=== PATIENT | male | born 1955 | race Hispanic/Latino ===

== ENCOUNTER → 2018-10-13 | Outpatient (CLI) | payer OTHER | END | disposition home or self-care (01) | LOC: SHCH 12:36 | PROVIDERS: ATTEND Internal Medicine Cardiovascular Disease | DX: I35.0 Nonrheumatic aortic (valve) stenosis (principal); I51.7 Cardiomegaly; I70.0 Atherosclerosis of aorta | CPT/HCPCS: 93306 ==

== ENCOUNTER → 2020-03-13 | Outpatient (CLI) | payer OTHER | END | disposition home or self-care (01) | LOC: SHCH 08:42 | PROVIDERS: ATTEND Internal Medicine Cardiovascular Disease | DX: I35.0 Nonrheumatic aortic (valve) stenosis (principal); I51.7 Cardiomegaly | CPT/HCPCS: 93306; 93356 ==

== ENCOUNTER 2021-06-22 01:53 | Emergency (ER) | payer MEDICARE, OTHER ==
[~2021-06-22] VITALS: Ht 162.6 cm; Wt 93.4 kg
[~2021-06-22 01:53] MED LIST: TAMS-1 PO
[2021-06-22 01:54] VITALS: BP 162/93
[2021-06-22 03:19] VITALS: BP 131/78
[2021-06-22 03:58] LABS: APPEARANCE,URINE Clear (CLEAR); BILIRUBIN,URINE Negative (NEGATIVE); COLOR,URINE Yellow (YELLOW); GLUCOSE, URINE (UA) Negative (NEGATIVE); KETONES,URINE Negative (NEGATIVE); LEUKOCYTE ESTERASE ,URINE Trace (NEGATIVE); NITRATE,URINE Negative (NEGATIVE); OCCULT BLOOD,URINE Large (NEGATIVE); PH,URINE 5.5 (5.0-8.0); PROTEIN,URINE POS 1+ mg/dL (NEGATIVE); UROBILINOGEN,URINE 0.2 mg/dL (0.2-1.0)
[2021-06-22 03:59] VITALS: BP 122/63
[2021-06-22 04:10] LABS: BACTERIA,URINE Few /HPF (None Seen); WBC,URINE None Seen /HPF (0-1)
[2021-06-22 05:11] VITALS: BP 134/65
== END 2021-06-22 05:32 | disposition home or self-care (01) ==
LOC: EDH 01:53
DX: R33.9 Retention of urine, unspecified (principal); Z79.899 Other long term (current) drug therapy
CPT/HCPCS: 51702; 81001

== ENCOUNTER 2021-08-01 05:35 | Day surgery (SDC) | payer MEDICARE ==
[2021-07-30 16:38] LABS: BASOPHILS % (AUTO) 0.8 % (0.0-5.0); HEMATOCRIT 36.9 % (42-54); LYMPHOCYTES % (AUTO) 22.2 % (21.0-51.0); MEAN CORPUSCULAR HEMOGLOBIN 28.2 pg (27.0-33.0); MEAN CORPUSCULAR VOLUME 88.1 fL (79-99); MONOCYTES % (AUTO) 8.9 % (3.0-13.0); NEUTROPHILS % (AUTO) 61.6 % (40.0-77.0); PLATELET COUNT (AUTO) 207 K/uL (130-400); RED BLOOD CELL COUNT(AUTO) 4.19 MIL/uL (4.50-6.20); WHITE BLOOD COUNT (AUTO) 6.7 K/uL (4.8-10.8)
[2021-07-30 16:47] LABS: APPEARANCE,URINE Clear (CLEAR); BILIRUBIN,URINE Negative (NEGATIVE); COLOR,URINE Yellow (YELLOW); GLUCOSE, URINE (UA) Negative (NEGATIVE); KETONES,URINE Negative (NEGATIVE); LEUKOCYTE ESTERASE ,URINE Large (NEGATIVE); NITRATE,URINE Negative (NEGATIVE); OCCULT BLOOD,URINE Moderate (NEGATIVE); PH,URINE 5.5 (5.0-8.0); PROTEIN,URINE Negative (NEGATIVE); UROBILINOGEN,URINE 0.2 mg/dL (0.2-1.0)
[2021-07-30 16:48] LABS: POTASSIUM 3.9 mmol/L (3.5-5.1)
[2021-07-30 16:50] LABS: INR 0.99 (0.85-1.15); PROTHROMBIN TIME 10.8 SEC (9.6-11.6)
[2021-07-30 16:51] LABS: PARTIAL THROMBOPLASTIN TIME 28.5 SEC (26.3-35.5)
[2021-07-30 16:59] LABS: BACTERIA,URINE Few /HPF (None Seen); MUCUS,URINE Few LPF (None Seen); SQUAMOUS EPITHELIAL CELL,UR Few /HPF (0-2)
[2021-08-01] VITALS (8 sets, daily range): BP systolic 123–158; BP diastolic 61–77
[~2021-08-01] VITALS: Ht 162.6 cm; Wt 93.8 kg
[2021-08-01] MEDS ORDERED: 0.9%NACL 1000ML 1,000 ML IV ONE (06:16)
[2021-08-01] MEDS ORDERED: IOHEXOL-350 50ML VIAL IV ONE (07:01)
[2021-08-01] MEDS ORDERED: IOHEXOL 350 MG/ML 100ML INFUS..BTL IV ONE (07:01)
[2021-08-01] MEDS ORDERED: LIDOCAINE HCL 400MG/20ML VIAL ONE (07:01)
[2021-08-01] MEDS ORDERED: NITROGLYCERIN 2 MG VIAL IV ONE (07:02)
[2021-08-01] MEDS ORDERED: 0.9%NACL 1000ML 1,000 ML IV SCH (08:10)
== END 2021-08-01 11:25 | disposition home or self-care (01) ==
LOC: DAH 05:35
PROVIDERS: ATTEND Internal Medicine Cardiovascular Disease
DX: I35.0 Nonrheumatic aortic (valve) stenosis (principal); I20.9 Angina pectoris, unspecified; I25.2 Old myocardial infarction; Z79.01 Long term (current) use of anticoagulants; Z79.899 Other long term (current) drug therapy; Z82.49 Family history of ischemic heart disease and other diseases of the circulatory system; Z98.890 Other specified postprocedural states
CPT/HCPCS: 36415; 71045; 80048; 81001; 85025; 85610; 85730; 87077; 87088; 87186; 93005; 93454; A4215; A4216; A4221; A4222; A4223 ×3; A4606; A4663; C1760; C1894; J1644; J3490; J7030; Q9965; Q9967

== ENCOUNTER 2021-08-30 10:19 | Inpatient (IN) | payer MEDICARE ==
[~2021-08-30] VITALS: Ht 162.6 cm; Wt 92.1 kg
[2021-08-30] VITALS (9 sets, daily range): BP systolic 99–128; BP diastolic 62–75
[2021-08-30 10:48] LABS: BASOPHILS % (AUTO) 0.7 % (0.0-5.0); EOSINOPHILS % (AUTO) 5.9 % (0.0-8.0); HEMATOCRIT 38.2 % (42-54); LYMPHOCYTES % (AUTO) 22.5 % (21.0-51.0); MEAN CORPUSCULAR HEMOGLOBIN 27.8 pg (27.0-33.0); MEAN CORPUSCULAR HGB CONC 31.9 g/dL (32.0-36.0); MONOCYTES % (AUTO) 7.8 % (3.0-13.0); NEUTROPHILS % (AUTO) 62.7 % (40.0-77.0); PLATELET COUNT (AUTO) 259 K/uL (130-400); RED BLOOD CELL COUNT(AUTO) 4.39 MIL/uL (4.50-6.20); RED CELL DISTRIBUTION WIDTH 13.7 % (11.0-15.5); WHITE BLOOD COUNT (AUTO) 6.9 K/uL (4.8-10.8)
[2021-08-30 11:08] LABS: B-TYPE NATRIURETIC PEPTIDE 285 pg/mL (0-100); PROTHROMBIN TIME 10.9 SEC (9.6-11.6)
[2021-08-30 11:10] LABS: PARTIAL THROMBOPLASTIN TIME 27.3 SEC (26.3-35.5)
[2021-08-30 11:14] LABS: CREATININE 0.9 mg/dL (0.5-1.5); POTASSIUM 3.9 mmol/L (3.5-5.1)
[2021-08-30 11:19] LABS: ALBUMIN 3.7 g/dL (3.5-5.0); BILIRUBIN,TOTAL 0.5 mg/dL (0.2-1.0); TOTAL PROTEIN, SERUM 7.7 g/dL (6.0-8.3)
[2021-08-30] MEDS ORDERED: DOPAMINE 800MG/D5 250ML 250 ML IV ONE (11:22)
[2021-08-30] MEDS ORDERED: CEFAZOLIN SODIUM IV PRN (12:00)
[2021-08-30] MEDS ORDERED: DIPHENHYDRAMINE HCL 25 MG CAPSULE PO PRN (12:00)
[2021-08-30] MEDS ORDERED: [UNRECOGNIZED DRUG - OTHER] IV PRN (12:00)
[2021-08-30] MEDS ORDERED: BUPIVACAINE/PF 0.25% 30ML VIAL IJ ONE (12:09)
[2021-08-30] MEDS ORDERED: IODIXANOL 320 MG/ML 100 ML VIAL ONE (12:09)
[2021-08-30] MEDS ORDERED: LIDOCAINE HCL 1% MDV 50ML VIAL ONE (12:09)
[2021-08-30] MEDS ORDERED: CEFAZOLIN SODIUM 1 GM VIAL ONE (12:11)
[2021-08-30] MEDS ORDERED: ONDANSETRON 4MG TABLET PO PRN (12:30)
[2021-08-30] MEDS ORDERED: ACETAMINOPHEN 325 MG TAB PO PRN ×3 (12:30→15:00)
[2021-08-30] MEDS: DOPAMINE 800MG/D5 250ML 250 ML IV SCH (12:43)
[2021-08-30] MEDS ORDERED: FENTANYL CITRATE PF 50 MCG/1 ML 2ML VIAL ONE (13:05)
[2021-08-30] MEDS ORDERED: MIDAZOLAM HCL 1 MG/ML 2ML VIAL ONE (13:05)
[2021-08-30] MEDS ORDERED: OCTYL 2-CYANOACRYLATE 1 EACH TP ONE ×2 (14:45→14:46)
[2021-08-30] MEDS ORDERED: TEMAZEPAM 30 MG CAP PO PRN (15:00)
[2021-08-30] MEDS ORDERED: ONDANSETRON 4MG INJ IV PRN (15:00)
[2021-08-30] MEDS ORDERED: AEC81 PO (18:12)
[2021-08-30] MEDS ORDERED: CLOP75TA32 PO (18:12)
[2021-08-30] MEDS: CEFAZOLIN SODIUM 1 GM VIAL IVP SCH (21:43)
[2021-08-30] MEDS: TAMSULOSIN HCL 0.4 MG CAP.ER.24H PO SCH (21:44)
[2021-08-31] VITALS: BP 138/75
[2021-08-31 04:00] VITALS: BP 128/78
[2021-08-31 04:43] LABS: BASOPHILS % (AUTO) 0.5 % (0.0-5.0); EOSINOPHILS % (AUTO) 3.6 % (0.0-8.0); HEMATOCRIT 33.2 % (42-54); LYMPHOCYTES % (AUTO) 19.9 % (21.0-51.0); MEAN CORPUSCULAR HEMOGLOBIN 28.1 pg (27.0-33.0); MEAN CORPUSCULAR HGB CONC 32.8 g/dL (32.0-36.0); MEAN CORPUSCULAR VOLUME 85.6 fL (79-99); NEUTROPHILS % (AUTO) 64.5 % (40.0-77.0); PLATELET COUNT (AUTO) 198 K/uL (130-400); RED BLOOD CELL COUNT(AUTO) 3.88 MIL/uL (4.50-6.20); RED CELL DISTRIBUTION WIDTH 13.6 % (11.0-15.5); WHITE BLOOD COUNT (AUTO) 6.1 K/uL (4.8-10.8)
[2021-08-31 04:59] LABS: ALBUMIN 3.1 g/dL (3.5-5.0); BILIRUBIN,TOTAL 0.5 mg/dL (0.2-1.0); CREATININE 0.8 mg/dL (0.5-1.5); MAGNESIUM 1.8 mg/dL (1.80-2.40); POTASSIUM 4.1 mmol/L (3.5-5.1); TOTAL PROTEIN, SERUM 6.6 g/dL (6.0-8.3)
[2021-08-31] MEDS: CEFAZOLIN SODIUM 1 GM VIAL IVP SCH ×3 (06:42→20:51)
[2021-08-31 08:52] VITALS: BP 133/77
[2021-08-31] MEDS: DOPAMINE 800MG/D5 250ML 250 ML IV SCH (08:55)
[2021-08-31] MEDS: TAMSULOSIN HCL 0.4 MG CAP.ER.24H PO SCH ×2 (09:01→20:51)
[2021-08-31] MEDS: CLOPIDOGREL 75MG TAB PO SCH (09:01)
[2021-08-31] MEDS: ASPIRIN 81 MG EC TAB PO SCH (09:01)
[2021-08-31 11:32] VITALS: BP 144/83
[2021-08-31 15:47] VITALS: BP 128/87
[2021-08-31] MEDS ORDERED: CLIN-141 PO (19:17)
[2021-08-31 20:00] VITALS: BP 126/85
[2021-08-31] MEDS: CLINDAMYCIN 150 MG CAP PO SCH (20:51)
[2021-09-01] VITALS: BP 112/60
[2021-09-01 04:00] VITALS: BP 121/73
[2021-09-01] MEDS: CLINDAMYCIN 150 MG CAP PO SCH ×2 (04:39→12:55)
[2021-09-01] MEDS: CEFAZOLIN SODIUM 1 GM VIAL IVP SCH ×2 (04:40→12:55)
[2021-09-01 08:18] VITALS: BP 132/79
[2021-09-01] MEDS: ASPIRIN 81 MG EC TAB PO SCH (09:11)
[2021-09-01] MEDS: TAMSULOSIN HCL 0.4 MG CAP.ER.24H PO SCH (09:11)
[2021-09-01] MEDS: CLOPIDOGREL 75MG TAB PO SCH (09:11)
[2021-09-01 11:41] VITALS: BP 152/100
[2021-09-01 16:26] VITALS: BP 144/88
== END 2021-09-01 18:45 | disposition home or self-care (01) | DRG 242 ==
LOC: EDH 10:19 → EDHIP 11:29 → UNDOADMIN 11:29 → EDHIP 11:30 → 4DH 15:30
PROVIDERS: ADMIT Internal Medicine Infectious Disease; ATTEND Internal Medicine Infectious Disease
PROC: 0JH606Z Insertion of Pacemaker, Dual Chamber into Chest Subcutaneous Tissue and Fascia, Open Approach (ICD-10-PCS; principal; 2021-08-30)
PROC: 02HK3JZ Insertion of Pacemaker Lead into Right Ventricle, Percutaneous Approach (ICD-10-PCS; 2021-08-30)
PROC: 02H63JZ Insertion of Pacemaker Lead into Right Atrium, Percutaneous Approach (ICD-10-PCS; 2021-08-30)
PROC: 4B02XSZ Measurement of Cardiac Pacemaker, External Approach (ICD-10-PCS; 2021-08-31)
DX: I44.2 Atrioventricular block, complete (principal); I50.33 Acute on chronic diastolic (congestive) heart failure; E78.00 Pure hypercholesterolemia, unspecified; E66.9 Obesity, unspecified; R33.8 Other retention of urine; N40.1 Benign prostatic hyperplasia with lower urinary tract symptoms; E78.5 Hyperlipidemia, unspecified; I25.10 Atherosclerotic heart disease of native coronary artery without angina pectoris; Z68.34 Body mass index [BMI] 34.0-34.9, adult; Z95.2 Presence of prosthetic heart valve; Z85.46 Personal history of malignant neoplasm of prostate; I11.0 Hypertensive heart disease with heart failure
CPT/HCPCS: 33208; 36415; 71045; 71046; 80053; 82550; 83735; 83880; 84443; 84484; 85025; 85610; 85730; 93005; 99156; 99157; 99291; C1785; G0378; J0690; J1265; J2250; J3010; J3490; Q9967

== ENCOUNTER 2021-09-22 10:10 | Inpatient (IN) | payer MEDICARE ==
[~2021-09-22] VITALS: Ht 162.6 cm; Wt 93.4 kg
[~2021-09-22 10:10] MED LIST changes: +AEC81 PO; +CLOP75TA32 PO
[2021-09-22 11:10] LABS: BASOPHILS % (AUTO) 0.5 % (0.0-5.0); EOSINOPHILS % (AUTO) 0.9 % (0.0-8.0); MEAN CORPUSCULAR HEMOGLOBIN 26.8 pg (27.0-33.0); MEAN CORPUSCULAR HGB CONC 31.4 g/dL (32.0-36.0); MEAN CORPUSCULAR VOLUME 85.3 fL (79-99); MONOCYTES % (AUTO) 4.1 % (3.0-13.0); PLATELET COUNT (AUTO) 213 K/uL (130-400); RED BLOOD CELL COUNT(AUTO) 4.22 MIL/uL (4.50-6.20); RED CELL DISTRIBUTION WIDTH 13.7 % (11.0-15.5); WHITE BLOOD COUNT (AUTO) 6.7 K/uL (4.8-10.8)
[2021-09-22 11:16] LABS: APPEARANCE,URINE CLOUDY (CLEAR); BILIRUBIN,URINE SMALL (NEGATIVE); GLUCOSE, URINE (UA) 100 mg/dL (NEGATIVE); KETONES,URINE 5 mg/dL (NEGATIVE); LEUKOCYTE ESTERASE ,URINE NEGATIVE (NEGATIVE); NITRATE,URINE POSITIVE (NEGATIVE); OCCULT BLOOD,URINE LARGE (NEGATIVE); PROTEIN,URINE >=300 mg/dL (NEGATIVE); UROBILINOGEN,URINE 0.2 mg/dL (0.2-1.0)
[2021-09-22 11:19] LABS: COLOR,URINE RED (YELLOW)
[2021-09-22 11:29] LABS: RBC,URINE TNTC /HPF (0-1)
[2021-09-22 11:30] LABS: BACTERIA,URINE Few /HPF (None Seen); SQUAMOUS EPITHELIAL CELL,UR Rare /HPF (0-2)
[2021-09-22 11:36] LABS: POTASSIUM 4.3 mmol/L (3.5-5.1)
[2021-09-22 11:37] LABS: INR 1.01 (0.85-1.15)
[2021-09-22 11:38] LABS: PARTIAL THROMBOPLASTIN TIME 24.6 SEC (26.3-35.5)
[2021-09-22 11:42] LABS: ALBUMIN 3.5 g/dL (3.5-5.0); BILIRUBIN,TOTAL 0.2 mg/dL (0.2-1.0); TOTAL PROTEIN, SERUM 7.3 g/dL (6.0-8.3)
[2021-09-22] MEDS ORDERED: IOHEXOL-350 75 ML VIAL IV ONE (12:59)
[2021-09-22] MEDS ORDERED: LIDOCAINE HCL 2% JELLY 5 ML ONE (15:19)
[2021-09-22] MEDS ORDERED: ONDANSETRON 4MG INJ IVP PRN (16:30)
[2021-09-22 17:10] VITALS: BP 130/69
[2021-09-22 18:38] LABS: HEMATOCRIT 31.8 % (42-54); MEAN CORPUSCULAR HEMOGLOBIN 26.7 pg (27.0-33.0); MEAN CORPUSCULAR HGB CONC 31.8 g/dL (32.0-36.0); MEAN CORPUSCULAR VOLUME 84.1 fL (79-99); PLATELET COUNT (AUTO) 207 K/uL (130-400); RED BLOOD CELL COUNT(AUTO) 3.78 MIL/uL (4.50-6.20); RED CELL DISTRIBUTION WIDTH 13.7 % (11.0-15.5); WHITE BLOOD COUNT (AUTO) 5.5 K/uL (4.8-10.8)
[2021-09-22 19:50] LABS: BAND NEUTROPHILS % (MANUAL) 1 % (0-2); EOSINOPHILS % (MANUAL) 8 % (1-6); LYMPHOCYTES % (MANUAL) 13 % (22-44); MAN.DIFF COMMENT-IMPRESSION MANUAL DIFFERENTIAL; MONOCYTES % (MANUAL) 5 % (2-9); REACTIVE LYMPHOCYTES 7 % (0-0); SEGMENTED NEUTROPHILS % 66 % (40-70)
[2021-09-22 20:00] VITALS: BP 119/70
[2021-09-23] VITALS (27 sets, daily range): BP systolic 117–155; BP diastolic 70–85
[2021-09-23 05:49] LABS: BASOPHILS % (AUTO) 0.5 % (0.0-5.0); EOSINOPHILS % (AUTO) 6.6 % (0.0-8.0); HEMATOCRIT 30.4 % (42-54); LYMPHOCYTES % (AUTO) 25.8 % (21.0-51.0); MEAN CORPUSCULAR HGB CONC 31.9 g/dL (32.0-36.0); MEAN CORPUSCULAR VOLUME 84.7 fL (79-99); MONOCYTES % (AUTO) 10.4 % (3.0-13.0); NEUTROPHILS % (AUTO) 56.4 % (40.0-77.0); PLATELET COUNT (AUTO) 187 K/uL (130-400); RED BLOOD CELL COUNT(AUTO) 3.59 MIL/uL (4.50-6.20); RED CELL DISTRIBUTION WIDTH 13.8 % (11.0-15.5); WHITE BLOOD COUNT (AUTO) 5.9 K/uL (4.8-10.8)
[2021-09-23 06:05] LABS: CREATININE 0.9 mg/dL (0.5-1.5); MAGNESIUM 1.8 mg/dL (1.80-2.40); POTASSIUM 4.2 mmol/L (3.5-5.1)
[2021-09-23] MEDS: ZOSYN 3.375GM +NS 50ML IV SCH ×2 (11:04→18:00)
[2021-09-23] MEDS ORDERED: SUCCINYLCHOLINE CHLORIDE 20 MG/ML 10 ML VIAL ONE (14:05)
[2021-09-23] MEDS ORDERED: LIDOCAINE PF 100MG/5ML (2%) SYRINGE 5ML ONE (14:05)
[2021-09-23] MEDS ORDERED: DEXAMETHASONE SOD PHOSPHATE 10MG/ML 1ML VIAL ONE (14:05)
[2021-09-23] MEDS ORDERED: NEOSTIGMINE 5MG/5ML SYR IV ONE (14:06)
[2021-09-23] MEDS ORDERED: MIDAZOLAM HCL 1 MG/ML 2ML VIAL ONE (14:06)
[2021-09-23] MEDS ORDERED: ONDANSETRON 4MG INJ ONE (14:06)
[2021-09-23] MEDS ORDERED: GLYCOPYRROLATE 1 MG/5 ML SYRINGE ONE (14:06)
[2021-09-23] MEDS ORDERED: ROCURONIUM 10MG/1ML SYR 10 MG/ML ML ONE (14:07)
[2021-09-23] MEDS ORDERED: PROPOFOL 10 MG/ML 20ML VIAL IV ONE (14:07)
[2021-09-23] MEDS ORDERED: FENTANYL CITRATE PF 50 MCG/1 ML 2ML VIAL ONE (14:07)
[2021-09-23] MEDS ORDERED: MEPERIDINE-PF 75 MG/ML SYG IM PRN (17:30)
[2021-09-23] MEDS: 0.9%NACL 1000ML 1,000 ML IV SCH (18:00)
[2021-09-23] MEDS: ACETAMINOPHEN 325 MG TAB PO PRN (20:59)
[2021-09-24] VITALS (9 sets, daily range): BP systolic 108–142; BP diastolic 51–76
[2021-09-24] MEDS: ZOSYN 3.375GM +NS 50ML IV SCH ×3 (02:34→18:13)
[2021-09-24 04:57] LABS: BASOPHILS % (AUTO) 0.2 % (0.0-5.0); EOSINOPHILS % (AUTO) 1.7 % (0.0-8.0); HEMATOCRIT 31.9 % (42-54); LYMPHOCYTES % (AUTO) 9.3 % (21.0-51.0); MEAN CORPUSCULAR HEMOGLOBIN 26.2 pg (27.0-33.0); MEAN CORPUSCULAR HGB CONC 32.3 g/dL (32.0-36.0); MEAN CORPUSCULAR VOLUME 81.2 fL (79-99); MONOCYTES % (AUTO) 4.1 % (3.0-13.0); NEUTROPHILS % (AUTO) 84.4 % (40.0-77.0); PLATELET COUNT (AUTO) 214 K/uL (130-400); RED BLOOD CELL COUNT(AUTO) 3.93 MIL/uL (4.50-6.20); RED CELL DISTRIBUTION WIDTH 15.6 % (11.0-15.5); WHITE BLOOD COUNT (AUTO) 6.3 K/uL (4.8-10.8)
[2021-09-24 05:07] LABS: CREATININE 0.9 mg/dL (0.5-1.5); MAGNESIUM 1.7 mg/dL (1.80-2.40); POTASSIUM 3.9 mmol/L (3.5-5.1)
[2021-09-24] MEDS: 0.9%NACL 1000ML 1,000 ML IV SCH ×3 (10:04→22:37)
[2021-09-24] MEDS ORDERED: MAGNESIUM 2GM PREMIX 50ML 50 ML IV SCH (13:30)
[2021-09-24] MEDS: ACETAMINOPHEN 325 MG TAB PO PRN (18:14)
[2021-09-24] MEDS ORDERED: OXYBUTYNIN 5 MG TAB.SR.24H PO SCH (20:30)
[2021-09-25] VITALS (8 sets, daily range): BP systolic 100–167; BP diastolic 44–76
[2021-09-25] MEDS: ZOSYN 3.375GM +NS 50ML IV SCH ×3 (01:51→18:24)
[2021-09-25 04:47] LABS: MEAN CORPUSCULAR HEMOGLOBIN 25.9 pg (27.0-33.0); MEAN CORPUSCULAR HGB CONC 31.2 g/dL (32.0-36.0); MEAN CORPUSCULAR VOLUME 83.1 fL (79-99); RED BLOOD CELL COUNT(AUTO) 3.97 MIL/uL (4.50-6.20); RED CELL DISTRIBUTION WIDTH 15.5 % (11.0-15.5); WHITE BLOOD COUNT (AUTO) 6.7 K/uL (4.8-10.8)
[2021-09-25 05:03] LABS: CREATININE 0.8 mg/dL (0.5-1.5); MAGNESIUM 1.9 mg/dL (1.80-2.40); POTASSIUM 3.4 mmol/L (3.5-5.1)
[2021-09-25] MEDS: OXYBUTYNIN 5 MG TAB.SR.24H PO SCH (10:13)
[2021-09-25] MEDS: 0.9%NACL 1000ML 1,000 ML IV SCH ×3 (10:37→21:13)
[2021-09-25] MEDS ORDERED: LIDOCAINE HCL-MPF 1% 2ML VIAL IJ PRN (18:00)
[2021-09-25] MEDS ORDERED: POTASSIUM CHLORIDE 10% ELIXIR 20 MEQ/15 ML UDCUP PO PRN (18:00)
[2021-09-25] MEDS ORDERED: POTASSIUM CHLORIDE 20MEQ/100ML 100 ML IV PRN (18:00)
[2021-09-25] MEDS: KCL 20 MEQ ERTAB PO PRN ×2 (18:24→19:54)
[2021-09-26] MEDS: ZOSYN 3.375GM +NS 50ML IV SCH ×3 (01:55→17:27)
[2021-09-26 04:33] VITALS: BP 133/73
[2021-09-26] MEDS: 0.9%NACL 1000ML 1,000 ML IV SCH ×2 (05:29→06:08)
[2021-09-26 08:54] VITALS: BP 139/77
[2021-09-26] MEDS: FERROUS SULFATE 325 MG TABLET.DR PO SCH (08:56)
[2021-09-26] MEDS: OXYBUTYNIN 5 MG TAB.SR.24H PO SCH (08:56)
[2021-09-26] MEDS: FOLIC ACID 1 MG TABLET PO SCH (08:56)
[2021-09-26 11:03] VITALS: BP 124/77
[2021-09-26 15:55] VITALS: BP 130/75
[2021-09-26 20:00] VITALS: BP 118/65
[2021-09-27] VITALS: BP 127/71
[2021-09-27] MEDS: ZOSYN 3.375GM +NS 50ML IV SCH ×2 (02:16→10:46)
[2021-09-27 04:00] VITALS: BP 139/76
[2021-09-27 08:51] VITALS: BP 158/80
[2021-09-27] MEDS: FERROUS SULFATE 325 MG TABLET.DR PO SCH (10:46)
[2021-09-27] MEDS: FOLIC ACID 1 MG TABLET PO SCH (10:46)
[2021-09-27] MEDS: OXYBUTYNIN 5 MG TAB.SR.24H PO SCH (10:47)
[2021-09-27 12:54] VITALS: BP 143/71
[2021-09-27 17:30] VITALS: BP 154/75
== END 2021-09-27 18:45 | disposition home or self-care (01) | DRG 713 ==
LOC: EDH 10:10 → OBSVTOIN 15:20 → EDHIP 15:20 → 3CH 17:20
PROVIDERS: ADMIT Internal Medicine Infectious Disease; ATTEND Internal Medicine Infectious Disease
PROC: 30233N1 Transfusion of Nonautologous Red Blood Cells into Peripheral Vein, Percutaneous Approach (ICD-10-PCS; 2021-09-23)
PROC: 0V508ZZ Destruction of Prostate, Via Natural or Artificial Opening Endoscopic (ICD-10-PCS; principal; 2021-09-23 14:28)
PROC: 0VC08ZZ Extirpation of Matter from Prostate, Via Natural or Artificial Opening Endoscopic (ICD-10-PCS; 2021-09-23 14:28)
DX: N40.1 Benign prostatic hyperplasia with lower urinary tract symptoms (principal); N02.9 Recurrent and persistent hematuria with unspecified morphologic changes; N39.0 Urinary tract infection, site not specified; K80.20 Calculus of gallbladder without cholecystitis without obstruction; D64.9 Anemia, unspecified; I89.0 Lymphedema, not elsewhere classified; C67.9 Malignant neoplasm of bladder, unspecified; I10 Essential (primary) hypertension; E66.9 Obesity, unspecified; R33.8 Other retention of urine; I25.10 Atherosclerotic heart disease of native coronary artery without angina pectoris; I49.5 Sick sinus syndrome; Z68.35 Body mass index [BMI] 35.0-35.9, adult; Z95.0 Presence of cardiac pacemaker; Z95.2 Presence of prosthetic heart valve; Z85.46 Personal history of malignant neoplasm of prostate; Z79.82 Long term (current) use of aspirin; Z79.02 Long term (current) use of antithrombotics/antiplatelets
CPT/HCPCS: 36415; 36430; 74177; 80048; 80053; 81001; 83735; 84132; 84484; 85025; 85027; 85610; 85730; 86850; 86900; 86901; 86923; 87088; 93005; 99291; A4354; A4565; C1758; G0378; J0330; J1100; J2001; J2250; J2405; J2543; J2704; J2710; J3010; J3475; J3490; J7030; P9016; Q9967

== ENCOUNTER → 2021-10-07 | Outpatient (CLI) | payer MEDICARE ==
[~2021-10-07] MED LIST changes: -AEC81 PO; -CLOP75TA32 PO
== END | disposition home or self-care (01) ==
LOC: SHCH 12:48
PROVIDERS: ATTEND Internal Medicine Cardiovascular Disease
DX: I35.0 Nonrheumatic aortic (valve) stenosis (principal); E66.9 Obesity, unspecified; Z95.2 Presence of prosthetic heart valve; Z95.0 Presence of cardiac pacemaker
CPT/HCPCS: 93306; 93356

== ENCOUNTER → 2023-11-16 | Outpatient (CLI) | payer MEDICARE ==
[2023-11-16 12:04] LABS: BASOPHILS # (AUTO) 0.02 K/uL (0.00-0.20); BASOPHILS % (AUTO) 0.4 % (0.0-5.0); EOSINOPHILS % (AUTO) 3.5 % (0.0-8.0); IMMATURE GRANULOCYTE ABSOLUTE 0.03 K/uL (0-1); LYMPHOCYTES # (AUTO) 1.3 K/uL (1.0-4.8); LYMPHOCYTES % (AUTO) 22.5 % (21.0-51.0); MEAN CORPUSCULAR HEMOGLOBIN 29.7 pg (27.0-33.0); MEAN CORPUSCULAR HGB CONC 32.8 g/dL (32.0-36.0); MEAN CORPUSCULAR VOLUME 90.7 fL (79-99); MONOCYTES # (AUTO) 0.5 K/uL (0.1-1.0); MONOCYTES % (AUTO) 8.9 % (3.0-13.0); NEUTROPHILS # (AUTO) 3.6 K/uL (1.8-7.7); NEUTROPHILS % (AUTO) 64.2 % (40.0-77.0); PLATELET COUNT (AUTO) 194 K/uL (130-400); RED BLOOD CELL COUNT(AUTO) 4.74 MIL/uL (4.50-6.20); RED CELL DISTRIBUTION WIDTH 13.5 % (11.0-15.5); WHITE BLOOD COUNT (AUTO) 5.6 K/uL (4.8-10.8)
[2023-11-16 12:11] LABS: CREATININE 1.2 mg/dL (0.5-1.5); POTASSIUM 4.6 mmol/L (3.5-5.1)
== END | disposition home or self-care (01) ==
LOC: LAB 11:10
PROVIDERS: ATTEND Urology
DX: R31.29 Other microscopic hematuria (principal)
CPT/HCPCS: 36415; 80048; 85025

== ENCOUNTER → 2023-11-24 | Outpatient (CLI) | payer MEDICARE ==
[~2023-11-24] MED LIST changes: +IOHEXOL 350 MG/ML 100ML INFUS..BTL IV ONE
== END | disposition home or self-care (01) ==
LOC: RAH 09:56
PROVIDERS: ATTEND Urology
DX: K44.9 Diaphragmatic hernia without obstruction or gangrene (principal); R31.29 Other microscopic hematuria; M47.815 Spondylosis without myelopathy or radiculopathy, thoracolumbar region; K76.89 Other specified diseases of liver; K42.9 Umbilical hernia without obstruction or gangrene; K40.20 Bilateral inguinal hernia, without obstruction or gangrene, not specified as recurrent; N40.0 Benign prostatic hyperplasia without lower urinary tract symptoms; I70.0 Atherosclerosis of aorta; K57.90 Diverticulosis of intestine, part unspecified, without perforation or abscess without bleeding
CPT/HCPCS: 74178; Q9967

== ENCOUNTER → 2025-08-27 | Outpatient (CLI) | payer MEDICARE ==
[~2025-08-27] MED LIST changes: +IOHEXOL-350 50ML VIAL IV ONE; -TAMS-1 PO; +TAMS-55 PO
--- NOTE | 2025-08-27 22:25 | HMCIMG ---
EXAM: CTA Bilateral Lower Extremities with Intravenous Contrast. CLINICAL HISTORY: Unspecified peripheral vascular disease (PVD). TECHNIQUE: Axial CTA images of the bilateral lower extremities performed with intravenous contrast in the arterial phase. Coronal and sagittal reformatted images were generated and reviewed. 3D reformatted images were created on an independent workstation and evaluated. CONTRAST: Administered intravenously without incident. COMPARISON: None provided. FINDINGS: VASCULATURE: Common Femoral Artery: Patent bilaterally. No focal stenosis, occlusion, aneurysm, or dissection. Superficial Femoral Artery: Right side shows surgical clips in the posterior distal thigh region at the junction of the superficial femoral and popliteal arteries, consistent with prior vascular surgery or bypass procedure. No occlusion or aneurysm in the residual segment. Left side patent and normal in caliber. Deep Femoral Artery: Patent bilaterally. No focal stenosis or aneurysm. Popliteal Artery: On the right, luminal narrowing of approximately 20???30% in the proximal segment. Filling defect in the mid and distal segments with complete luminal occlusion of the distal popliteal artery. Extensive collateral genicular anastomoses reconstitute flow into the anterior and posterior tibial as well as the peroneal arteries, which remain opacified with contrast down to the foot level. Left popliteal artery is patent and of normal caliber. Calf Arteries: Right anterior and posterior tibial and peroneal arteries opacified distally through collateral channels. Left-sided calf arteries are patent and unremarkable. Soft Tissues: Postsurgical changes noted in the posterior right distal thigh and right proximal intra-articular tibia. Surrounding soft tissues appear unremarkable. Bones: Postsurgical changes involving the right proximal tibia. No acute fracture or destructive osseous lesion. IMPRESSION: 1. Complete occlusion of the right distal popliteal artery with extensive collateral genicular anastomoses reconstituting flow into the anterior tibial, posterior tibial, and peroneal arteries, which remain opacified with contrast down to the foot level. 2. 20-30% luminal narrowing of the right proximal popliteal artery. 3. Surgical clips in the right posterior distal thigh at the junction of the superficial femoral and popliteal arteries, consistent with prior vascular surgery or bypass procedure. 4. Postsurgical changes in the right proximal tibia and intra-articular region. 5. Patent left lower extremity arteries without evidence of stenosis, occlusion, or aneurysm. 6. Patent bilateral common femoral and deep femoral arteries. /[place]
== END | disposition home or self-care (01) ==
LOC: RAH 10:23
PROVIDERS: ATTEND Internal Medicine Cardiovascular Disease
DX: I74.3 Embolism and thrombosis of arteries of the lower extremities (principal); I73.9 Peripheral vascular disease, unspecified
CPT/HCPCS: 75635; Q9967 ×2